=== PATIENT | male | born 1950 | race Caucasian/White ===

== ENCOUNTER 2021-02-27 08:39 | Inpatient (IN) | payer OTHER ==
[~2021-02-27] VITALS: Ht 185.4 cm; Wt 111.6 kg
[2021-02-27 09:02] VITALS: BP 161/98
[2021-02-27 09:22] LABS: HEMOGLOBIN 6.8 gm/dL (14.0-18.0); LYMPHOCYTES 20.3 % (24.0-44.0)
[2021-02-27 09:23] LABS: BASOPHILS 0.6 % (0.0-2.0); EOSINOPHILS 4.2 % (0.0-3.0); MCH 23.6 pg (26.0-34.0); MCHC 30.9 g/dL (28.0-37.0); MCV 76.3 fL (80.0-100.0); MONOCYTES 8.6 % (1.0-8.0); PLATELET COUNT 461 thou/uL (150-400); POLYS 66.3 % (36.0-66.0); RBC 2.88 mil/uL (4.50-6.00); WBC 10.6 thou/uL (4.0-11.0)
[2021-02-27 09:32] LABS: CALCIUM 10.7 mg/dL (8.5-10.1); CREATININE 2.1 mg/dL (0.7-1.3); POTASSIUM 3.2 mmol/L (3.5-5.1)
[2021-02-27 09:42] LABS: ALBUMIN 2.5 g/dL (3.4-5.0); TOTAL BILIRUBIN 0.3 mg/dL (0.2-1.0); TOTAL PROTEIN 7.8 g/dL (6.4-8.2)
--- NOTE | 2021-02-27 12:58 | EKG ---
[place] [address] [facility] [place] [address] ELECTROCARDIOGRAM REPORT Name: BAILEEMELLY OH Rodney [id number] Admission: 02/27/21 Attend Phys: Discharge: Date of : 54 Report #: [id number] [facility] ED Test Date: 2021-02-27 Test Time: 08:49:27 Pat Name: MELLY FARR Department: Room: Gender: Cartoon Artist: ANTONELLA : 1950 Requested By: Kurt Cabrera Order Number: [id number] MD: Blaine Us Measurements Intervals [place] Rate: 95 P: 62 AL: 162 QRS: -52 QRSD: 114 T: 50 QT: 382 QTc: 481 Interpretive Statements Sinus rhythm Atrial premature complex Sinus pause Abnormal R-wave progression, late transition Borderline ST depression, lateral leads No previous ECG available for comparison Electronically Signed On 02-27-2021 12:58:19 CDT by Blaine Us [email or web address] <ELECTRONICALLY SIGNED> By: Blaine Us MD, [facility] 02/27/21 1258 0849 0849 Blaine Us MD, FACC /EPI
[2021-02-27 13:08] LABS: % SATURATION 14 % (20-39); IRON 18 ug/dL (65-175); TIBC 125 ug/dL (250-450)
[2021-02-27 13:25] VITALS: BP 162/126; BP 198/97
[2021-02-27 14:34] VITALS: BP 179/100
[2021-02-27 15:24] VITALS: BP 197/114
--- NOTE | 2021-02-27 16:17 | 2DMMODE ---
[facility] [place] [address] 2 D/M-MODE ECHOCARDIOGRAM Name: MELLY FARR Room #: 215-P ADM IN M.R.#: [id number] Admission: 02/27/21 Attend Phys: Rogelio Puente MD Discharge: Date of : 54 Report #: [id number] THIS REPORT FOR: cc: TAYLOR - No family physician/PCP TAYLOR - No family physician/PCP Blaine Us MD [facility] ~ APPROVED REPORT Study performed: 02/27/2021 15:25:30 EXAM: Comprehensive 2D, Doppler, and color-flow Echocardiogram Patient Location: ER Room #: 9 Status: routine BSA: 2.37 HR: 83 bpm BP: 179/100 mmHg Rhythm: NSR Other Information Study Quality: Good Indications Non STEMI Dyspnea 2D Dimensions RVDd: 37.99 mm IVSd: 10.86 (7-11mm) LVOT Diam: 20.67 (18-24mm) LVDd: 51.88 mm PWd: 11.39 (7-11mm) Ascending Ao: 38.82 (22-36mm) LVDs: 29.44 (25-40mm) Left Atrium: 41.36 (27-40mm) Aortic Root: 35.58 mm IVC: 29.00 mm Volumes Left Atrial Volume (Systole) Single Plane 4CH: 62.42 mL Single Plane 2CH: 44.67 mL LA ESV Index: 24.00 mL/m2 Aortic Valve AoV Peak Shekhar.: 1.63 m/s AO Peak Gr.: 10.60 mmHg LVOT Max P.81 mmHg LVOT Max V: 1.40 m/s [facility] [address] [address] 2 D/M-MODE ECHOCARDIOGRAM Name: MELLY FARR Rodney Room #: 215-P [facility] IN [facility]#: [id number] Admission: 02/27/21 Attend Phys: Rogelio Puente, Discharge: Date of : 54 Report #: [id number] EMILY Vmax: 2.88 cm2 Mitral Valve E/A Ratio: 1.3 MV Decel. Time: 203.94 ms MV E Max Shekhar.: 1.15 m/s MV A Shekhar.: 0.92 m/s MV PHT: 59.14 ms IVRT: 69.20 ms Pulmonary Valve PV Peak Shekhar.: 0.97 m/s PV Peak Gr.: 3.78 mmHg Pulmonary Vein P Vein S: 0.51 m/s P Vein A: 0.32 m/s P Vein D: 0.65 m/s P Vein A Dur.: 110.7 msec P Vein S/D Ratio: 0.78 Tricuspid Valve TR Peak Shekhar.: 2.44 m/s TR Peak Gr.: 23.79 mmHg PA Pressure: 34.00 mmHg Left Ventricle The left ventricle is normal size. There is normal left ventricular wall thickness. The left ventricular systolic function is normal. The left ventricular ejection fraction is within the normal range. LVEF is 60-65%. Grade II - pseudonormal filling dynamics. Right Ventricle The right ventricle is normal size. The right ventricular systolic function is normal. Atria The left atrium size is normal. The right atrium size is normal. Aortic Valve The aortic valve is normal in structure. Trace aortic regurgitation. There is no aortic valvular stenosis. Mitral Valve The mitral valve is normal in structure. Trace mitral regurgitation. No evidence of mitral valve stenosis. Tricuspid Valve [facility] [address] [place] [address] 2 D/M-MODE ECHOCARDIOGRAM Name: MELLY FARR Room #: 215-P [facility] IN .R.#: [id number] Admission: 02/27/21 Attend Phys: Rogelio Puente, Discharge: Date of : 54 Report #: [id number] The tricuspid valve is normal in structure. There is trace tricuspid regurgitation. Estimated PAP 34 mmHg. There is mild pulmonary hypertension. Pulmonic Valve The pulmonary valve is normal in structure. There is no pulmonic valvular regurgitation. Great Vessels The aortic root is normal in size. IVC is dilated and collapses >50% with inspiration. Pericardium There is no pericardial effusion. <Conclusion> Normal left ventricular size/wall thickness Ejection fraction 60-65%, no obvious segmental wall motion abnormality Normal right ventricular size/function Normal atrial size Abnormal aortic/mitral valve structure and function Trace tricuspid valve insufficiency Pulmonary systolic pressure estimated 34 mmHg No pericardial effusion Normal aortic root size. <ELECTRONICALLY SIGNED> By: Blaine Us MD, FACC 02/27/211616 16 16 Blaine Us MD, FACC /INF
[2021-02-27 19:31] LABS: HEMATOCRIT 21.8 % (42.0-52.0)
--- NOTE | 2021-02-27 20:31 | NUR ---
RECEIVED PATIENT FROM ER. PATIENT RESTING IN BED WITH 2 L OXYGEN VIA NASAL CANNULA; PATIENT DENIES SHORTNESS OF AIR AT THIS TIME. PATIENT HAS LARGE LEFT LOWER EXTREMITY WOUND; PICTURES TAKEN AND WOUND CARE CONSULT ADDED. PATIENT'S BLOOD PRESSURE ELEVATED; ADMINISTERED PRN HYDRALAZINE AND CONTACTED DR. MENDOSA. DR. MENDOSA ADDED ORDERS TO MANAGE BLOOD PRESSURE. PATIENT DENIES ANY NEEDS AT THIS TIME. DAUGHTER PRESENT IN ROOM. FALL PRECAUTIONS IN PLACE AND CALL LIGHT WITHIN REACH.
[2021-02-27 21:05] VITALS: BP 152/91
[2021-02-28 04:28] VITALS: BP 162/91
[2021-02-28 05:33] LABS: RBC 2.52 mil/uL (4.50-6.00)
[2021-02-28 05:34] LABS: MCHC 32.6 g/dL (28.0-37.0); MCV 76.7 fL (80.0-100.0); RDW 16.9 % (10.5-14.5); WBC 8.6 thou/uL (4.0-11.0)
[2021-02-28 05:45] LABS: ANION GAP 13 mmol/L (7-16); BUN 22 mg/dL (7-18); CALCIUM 8.8 mg/dL (8.5-10.1); CHLORIDE 106 mmol/L (98-107); CHOLESTEROL 113 mg/dL (<200); CO2 21 mmol/L (21-32); CREATININE 2.1 mg/dL (0.7-1.3); GLUCOSE 95 mg/dL (74-106); HDL CHOLESTEROL 26 mg/dL (>40); LDL CHOLESTEROL 68 mg/dL (<100); POTASSIUM 3.5 mmol/L (3.5-5.1); TC:HDL 4.3 Ratio (Not establshd); TRIGLYCERIDE 99 mg/dL (<150); VLDL 20 mg/dL (<40)
[2021-02-28 05:51] LABS: HEMATOCRIT 19.3 % (42.0-52.0); HEMOGLOBIN 6.3 gm/dL (14.0-18.0)
[2021-02-28 06:03] LABS: SERUM ASSESSMENT Clear; SODIUM 140 mmol/L (136-145)
--- NOTE | 2021-02-28 06:43 | NUR ---
PROGRESS PT A/O X4. DENIES PAIN VSS, TELEMETRY INTACT READING SR WITH RATES IN TO 60'S TO 80'S. PROTOIX DRIP INFUSING AT 25CC/8 MG/HR. IV ANTIBIOTICS ADMINISTERED ORDERED. PT VOIDING QS. TOLERATING WATER. SLEPT MOST OF SHIFT. HGB ON AM LABS 6.3 PROVIDER NOTIFIED AND ORDERED 1 UNIT OF PRBC'S AND RECHECK H&H 1 HOUR AFTER TRANSFUSION COMPLETED. CONSENT SIGNED. BP SLIGHTLY ELEVATED AND PRN HYDRALAZINE ORDERED. ON 2 LITERS O2 PRN SATS IN UPPER 90'S. CONTINUE TO MONITOR.
[2021-02-28 07:37] VITALS: BP 152/93
--- NOTE | 2021-02-28 09:53 | NUR ---
THIS TELEPHONE SALES AGENT COMPLETED ADV. DIR. CONSULT [phone]. PT. WAS OPEN AND HONEST. HE SAID HE SPOKE TO HIS DAUGHTER LAST NIGHT ABOUT COMPLETING AN A.D.. HE WAS NOT INTERESTED IN COMPLETING ONE AT THE TIME. I LEFT HIM A COPY AND EXPLAINED THAT WE ARE MORE THAT GLAD TO NOTARIZE HIS DOCUMENT WHENEVER HE WANTS. I SAID JUST TO HAVE THE HAT FORMER PAGE THE TELEPHONE SALES AGENT.
[2021-02-28 11:17] VITALS: BP 132/66; BP 154/85
--- NOTE | 2021-02-28 12:07 | NUR ---
WOUND CONSULT; THE LEFT LE ANTERIOR CALF HAS A WOUND WHICH IS MALODOUROUS AND PURULENT DRAINAGE. THE WOUND HAD A PSUDO-SCAB, LIKLEY DRIED DRAINAGE OVER A SIGNIFICANT TIME. THE DRIED SCAB-LIKE MATERIAL WAS EASISLLY REMOVED. THE WOUND WAS CLEANSED WITH SALINE AND COVERED WITH A XEROFORM GAUZE/ABD/KERLIX. -RECCOMENDATIONS; CONSULT WOUND CARE PHYSICIAN DISCUSSED WITH
--- NOTE | 2021-02-28 18:16 | NUR ---
OVERALL PT HAD A GOOD SHIFT. PT RECEIVED 1 UNIT OF BLOOD TODAY WITHOUT ISSUE. NO BM TODAY. NO PAIN COMPLAINTS. PT IS CURRENTLY DOING BOWEL PREP FOR AM COLONOSCOPY. NPO AFTER MIDNIGHT.
[2021-02-28 19:02] LABS: HEMATOCRIT 23.1 % (42.0-52.0); HEMOGLOBIN 7.4 gm/dL (14.0-18.0)
[2021-02-28 19:46] VITALS: BP 157/82
--- NOTE | 2021-02-28 23:27 | NUR ---
ASSUMED PT CARE AT AROUND 1915 HRS. PT IS PLEASANT, WORKING ON BOWEL PREP, ALREADY HAD A LARGE BM. DENIES ANY PAIN OR NAUSEA.DENIES DIZZINESS OR SOA. SR ON TELEMETRY. AWARE OF EGD AND COLONOSCPY TOMORROW.NPO AFTER MIDNOC.
[2021-03-01] VITALS (8 sets, daily range): BP systolic 143–171; BP diastolic 78–94
[2021-03-01 03:46] LABS: HEMATOCRIT 22.1 % (42.0-52.0); HEMOGLOBIN 7.1 gm/dL (14.0-18.0); MCH 25.3 pg (26.0-34.0); MCHC 32.3 g/dL (28.0-37.0); MCV 78.3 fL (80.0-100.0); RBC 2.82 mil/uL (4.50-6.00); RDW 18.2 % (10.5-14.5); WBC 7.6 thou/uL (4.0-11.0)
[2021-03-01 05:44] LABS: CALCIUM 8.3 mg/dL (8.5-10.1); MAGNESIUM 1.5 mg/dL (1.8-2.4)
[2021-03-01 05:59] LABS: POTASSIUM 2.9 mmol/L (3.5-5.1)
--- NOTE | 2021-03-01 11:55 | NUR ---
WOUND CARE F/U; THE WOUND IS DRAMATICALLY IMPROVED SINCE ADMIT. NO S/S OF INFECTION. CURRENTLY USING GENTAMYCIN OINTMENT TO THE WOUND BED, COVER WITH XEROFORM GAUZE, KERLIX,MELY. EDEMA HAS IMPROVED WELL. NO CHANGES TO POC.
--- NOTE | 2021-03-01 15:08 | NUR ---
PT OFF THE FLOOR BETWEEN 10:30 AND 14:20. FOR COLONOSCOPY AND EGD.
[2021-03-01 20:53] LABS: HEMATOCRIT 24.5 % (42.0-52.0); HEMOGLOBIN 7.8 gm/dL (14.0-18.0)
[2021-03-02 05:33] LABS: HEMATOCRIT 23.7 % (42.0-52.0); HEMOGLOBIN 7.6 gm/dL (14.0-18.0); MCH 25.2 pg (26.0-34.0); MCHC 32.1 g/dL (28.0-37.0); MCV 78.6 fL (80.0-100.0); RBC 3.01 mil/uL (4.50-6.00)
[2021-03-02 05:43] VITALS: BP 137/72
[2021-03-02 06:06] LABS: CREATININE 1.8 mg/dL (0.7-1.3); MAGNESIUM 1.8 mg/dL (1.8-2.4); POTASSIUM 3.1 mmol/L (3.5-5.1)
[2021-03-02 08:28] VITALS: BP 154/91
[2021-03-02 11:03] VITALS: BP 140/100; BP 150/99
[2021-03-02 12:07] VITALS: BP 146/82
[2021-03-02 16:28] VITALS: BP 147/85
[2021-03-02 18:51] LABS: HEMATOCRIT 26.5 % (42.0-52.0); HEMOGLOBIN 8.6 gm/dL (14.0-18.0)
[2021-03-02 19:53] VITALS: BP 147/84
--- NOTE | 2021-03-02 20:17 | NUR ---
PT IS AXOX4, PLEASANT; VS BP ELEVATED, AFEBRILE, SR ON THE MONITOR. PT HGB 7.6 THIS AM. IV TEAM CONSULTED FOR ADDITIONAL PIV. ONE UNIT PRBC GIVEN. DR TOLENTINO, DR ALANIS, DR MENDOSA CONSULTED. POC IS TO CONTINUE TO MONITOR HGB; PT TOLERATING ADVANCED DIET OF FULL LIQUIDS. POSS D/C FRIDAY PER . FALL PRECAUTIONS IN PLACE. NO CONCERNS AT THIS TIME.
[2021-03-03 02:37] LABS: HEMATOCRIT 25.5 % (42.0-52.0); HEMOGLOBIN 8.3 gm/dL (14.0-18.0); MCH 25.8 pg (26.0-34.0); MCHC 32.4 g/dL (28.0-37.0); MCV 79.6 fL (80.0-100.0); RBC 3.21 mil/uL (4.50-6.00); RDW 18.2 % (10.5-14.5); WBC 8.5 thou/uL (4.0-11.0)
[2021-03-03 02:54] LABS: CALCIUM 7.8 mg/dL (8.5-10.1); CREATININE 1.6 mg/dL (0.7-1.3); MAGNESIUM 1.8 mg/dL (1.8-2.4); POTASSIUM 3.1 mmol/L (3.5-5.1)
[2021-03-03 05:28] VITALS: BP 145/78
--- NOTE | 2021-03-03 07:33 | NUR ---
SLEPT PART OF SHIFT. DENIES COMPLAINTS THIS SHIFT. WAS GOING TO CHANGE LLE DRESSING LAST PM AT 2130 BUT PATIENT REFUSED SAYING IT ONLY GETS DONE ONCE A DAY. ASKED AM RN TO CLARIFY FOR PATIENT. WORKING ON GOALS AND PLAN OF CARE FOR NOC. CONTINUE TO ASSES.
[2021-03-03 08:00] VITALS: BP 153/91
[2021-03-03 11:30] VITALS: BP 141/75
[2021-03-03 16:30] VITALS: BP 146/86
[2021-03-03 19:27] VITALS: BP 149/105
--- NOTE | 2021-03-03 19:34 | NUR ---
PT IS AXOX4, PLEASANT. VSS, AFEBRILE, SR THIS AM ON MONITOR. DENIES PAIN. DR BARRY CONSULTED. PT MADE MED SURG. PT PROGRESSED TO SOFT DIET, TOLERATING WELL. GI/SURGERY CONSULTED; PT TOLD TO PROGRESS ON DIET SLOWLY AND TO CONTINUE ON SOFT DIET UNTIL ULCER CAN HEAL. PT COMMUNICATED UNDERSTANDING. PT HAS BEEN UP AD GREGORIO MOVING IN ROOM. POC IS TO CONTINUE TO MONITOR VITALS, ASSESS TOLERANCE ADVANCING DIET, HGB STABLE. POSS D/C IN AM. FALL PRECAUTIONS IN PLACE. NO CONCERNS AT THIS TIME.
[2021-03-04 01:35] LABS: URINE CREATININE-RANDOM* 44.1 mg/dL
[2021-03-04 01:36] LABS: PROT/CREAT RATIO 1.2; URINE PROTEIN-RANDOM* 53.8 mg/dL (<11.9)
[2021-03-04 05:10] VITALS: BP 145/85
[2021-03-04 05:32] LABS: CALCIUM 7.6 mg/dL (8.5-10.1); CREATININE 1.6 mg/dL (0.7-1.3); MAGNESIUM 1.9 mg/dL (1.8-2.4); POTASSIUM 3.2 mmol/L (3.5-5.1)
[2021-03-04 05:33] LABS: HEMATOCRIT 25.8 % (42.0-52.0); HEMOGLOBIN 8.4 gm/dL (14.0-18.0); MCH 25.5 pg (26.0-34.0); MCHC 32.6 g/dL (28.0-37.0); MCV 78.4 fL (80.0-100.0); RBC 3.29 mil/uL (4.50-6.00); RDW 18.6 % (10.5-14.5); WBC 6.3 thou/uL (4.0-11.0)
[2021-03-04 07:25] VITALS: BP 149/87
--- NOTE | 2021-03-04 07:38 | NUR ---
SLEPT MOST OF SHIFT. DENIES COMPLAINTS OF PAIN. DRESSING TO LEFT LEG INTACT AND DRY. WORKING ON GOALS AND PLAN OF CARE FOR NOC. CONTINUE TO ASSES. NOTED REDNESS TO LEFT INNER ARM FROM BRUISE ON LEFT FA.
[2021-03-04] MEDS ORDERED: CEFUROXIME500 MG PO (09:07)
[2021-03-04] MEDS ORDERED: COREG6.25 MG PO (09:08)
[2021-03-04] MEDS ORDERED: PROTONIX 20 MG20 M1 PO (09:09)
[2021-03-04 10:01] VITALS: BP 149/87
[2021-03-04 11:25] VITALS: BP 142/83
--- NOTE | 2021-03-04 11:50 | NUR ---
PT IS AXOX4, PLEASANT; DENIES PAIN; VSS, AFEBRILE, MEDSURG SO NOT MONITORED. PT HAS BEEN UP AD GREGORIO IN THE ROOM. DR BARRY CONSULTED, DR ALANIS CONSULTED, DR VELARDE CONSULTED. PT TO D/C THIS AFTERNOON TO HOME. DISCHARGE EDUCATION COMPLETED. PT COMMUNICATED UNDERSTANDING OF FOLLOW UP APPTS AND MEDICATIONS. PT D/C WITH DTR VIA PERSONAL VEHICLE TO HOME. NO CONCERNS AT THIS TIME.
--- NOTE | 2021-03-05 11:03 | HC ---
[facility] [place] [address] CONSULTATION Name: MELLY FARR Room #: 215-P [facility] IN M.R.#: [id number] Admission: 02/27/21 Attend Phys: Rogelio Puente MD Discharge: 03/04/21 Date of : 54 Report #: [id number] THIS REPORT FOR: cc: FAM - No family physician/PCP FAM - No family physician/PCP Slade Mendiola MD ~ DATE OF SERVICE: 02/28/2021 CHIEF COMPLAINT: Ulceration, left lower extremity. HISTORY OF PRESENT ILLNESS: This is a 70-year-old male patient who was admitted to the hospital with worsening shortness of breath over the last several days, especially with exertion. He also has had some coffee-ground emesis, but was noted to have a venous type ulcer on his left leg and I have been asked to see him with regard to wound care. He denies significant pain, but states that it has been getting progressively worse. PAST MEDICAL HISTORY: Positive for history of hypertension, chronic ulceration of left lower extremity, chronic kidney disease, history of atrial fibrillation status post ablation 20 years ago. FAMILY HISTORY: Positive for coronary artery disease in his father. SOCIAL HISTORY: Negative for alcohol or tobacco use. He is a partly retired senior accountant analyst. ALLERGIES: No known drug allergies. MEDICATIONS: Include carvedilol, cefepime, gentamicin, hydralazine, pantoprazole, vancomycin. REVIEW OF SYSTEMS: CONSTITUTIONAL: The patient denies fever, chills or weight loss. NEUROLOGICAL: The patient denies focal weakness, or tingling. EYES: The patient denies visual changes, redness, drainage. ENT: The patient denies earache, nasal drainage or sore throat CARDIOVASCULAR: The patient denies chest pain, palpitations or diaphoresis. PULMONARY: Does complain of shortness of breath, especially with exertion. GASTROINTESTINAL: The patient does complain of coffee-ground emesis. GENITOURINARY: The patient denies frequency, urgency or dysuria. ORTHOPEDIC: The patient notes swelling and ulceration of the left lower extremity. Other systems in a 14-point review of systems are negative. PHYSICAL EXAMINATION: [facility] [address] [place] [address] CONSULTATION Name: MELLY FARR Room #: 215-P [facility] IN [facility]#: [id number] Admission: 02/27/21 Attend Phys: Rogelio Puente MD Discharge: 03/04/21 Date of : 54 Report #: [id number] VITAL SIGNS: At this time include temperature 36.7, pulse 80, respiratory rate of 20, blood pressure 152/93. GENERAL: This is a well-developed male patient, who appears to be in minimal distress. HEENT: Head normocephalic. Nose and throat are clear. NECK: Supple. LUNGS: Diminished. HEART: Regular rhythm. ABDOMEN: Soft and bowel sounds are present. EXTREMITIES: Examination of the lower extremities demonstrate easily palpable distal pulses. He has 2 to 3+ edema bilaterally. He has a very large oval shaped pretibial ulceration on the left leg. There is some crusting and a little bit of drainage present, but there is evidence of granulation tissue. There is hyperpigmentation and some hemosiderin staining to his left leg suggestive of venous stasis dermatitis. NEUROLOGIC: The patient is alert, oriented and appropriate. LABORATORY DATA: Include sodium 140, potassium 3.5, chloride 106, CO2 of 21, BUN 22, glucose 95. White blood cell count is 8.6 with a hemoglobin of 6.3. CLINICAL IMPRESSION: 1. A venous type ulceration to the left lower leg. 2. Iron deficiency anemia and possible acute blood loss anemia. 3. Possible gastrointestinal bleeding. 4. Hypertension. 5. Chronic kidney disease. RECOMMENDATIONS: At this point in time, recommend topical gentamicin ointment, Xeroform, ABD, Kerlix, Lalo from toes to knees. Elevation of the lower extremities. Continue with medical management, nutritional support. I appreciate being asked to see him in consultation. <ELECTRONICALLY SIGNED> By: Slade Mendiola MD 03/05/21 1103 0906 1056 Slade Mendiola MD /nt
--- NOTE | 2021-03-08 10:08 | PATH ---
[facility] [place] [address] PATHOLOGY RPT PROCEDURE Name: LOPEZ FARR Room #: 215-P DIS IN M.R.#: [id number] Admission: 02/27/21 Date of : 54 Discharge: 03/04/21 Report #: [id number] Path Case #: [id number] [facility] Accession Number: [id number] . 01 Material submitted: . PART A: gastrointestinal site - GASTRIC ULCERATION/MASS BIOPSY PART B: gastrointestinal site - GASTRIC BIOPSY- R/O H. PYLORI . 01 Clinical history: . ESOPHAGOGASTRODUODENOSCOPY ANEMIA, POSITIVE HEMOCCULT GASTRIC OUTLET OBSTRUCTION, GASTRIC ULCER . 02 Diagnosis: A. Gastric mucosa, gastric ulceration/mass, endoscopic biopsy: - Fragments of an ulcer associated with granulation tissue and necroinflammatory debris (please see comment). - Focal surface epithelium present showing reactive changes without intestinal metaplasia or dysplasia. - Negative for Helicobacter pylori (properly controlled immunohistochemical stain performed). . B. Gastric mucosa, gastric to rule out H. pylori, endoscopic biopsy: - Moderate chronic active gastritis with features of reactive gastropathy. - Negative for intestinal metaplasia or atrophy. - Negative for Helicobacter pylori (properly controlled immunohistochemical stain performed). . (IUV:sail repair person; 03/05/2021) MBR 03/05/2021 1441 Local . 02 Comment: In addition to a properly controlled Helicobacter pylori immunohistochemical (IHC) stain, additional properly controlled IHC stains were performed on block A1 due to the provided history of ulceration/mass. The spindle cells show reactivity with SMA, the cells are nonreactive to CD117 and AE1/AE3. These findings are suggestive of myofibroblastic proliferation of an ulcer along with the granulation tissue. The nonreactive immunohistochemical stains argue against a partially sampled poorly differentiated carcinoma or a gastrointestinal stromal tumor. Clinical correlation and re-biopsy if indicated is suggested. (IUV:sail repair person; 03/05/2021) . 02 Electronically signed: . Tabitha Rhodes MD, Pathologist NPI- [id number] . [address] [place] [address] PATHOLOGY RPT PROCEDURE Name: LOPEZ FARR Room #: 215-P DIS IN M.R.#: [id number] Admission: 02/27/21 Date of : 54 Discharge: 03/04/21 Report #: [id number] Path Case #: [id number] Gross description: . A. The specimen is received in formalin, labeled "Doppelt, Lopez, gastric ulceration mass BX". Received are multiple segments of pale grayson tissue ranging in size from 0.2 cm to 0.5 cm in maximum dimensions. The specimen is submitted entirely in cassette A1. . B. The specimen is received in formalin, labeled "Doppelt, Lopez, gastric BX". Received are 3 segments of pale grayson tissue ranging in size from 0.3 to 0.4 cm in maximum dimensions. The specimen is submitted entirely in cassette B1.([facility]; 03/02/2021) [facility] 03/02/2021 1111 Local . 02 Pathologist provided ICD-10: K29.50, K31.9 . 02 CPT . 322727, 904363, H45283, M07417 Specimen Comment: A courtesy copy of this report has been sent to [phone], [phone] Specimen Comment: [id number], Specimen Comment: Report sent to ,DR MENDOSA / DR MOHAMUD Specimen Comment: A duplicate report has been generated due to demographic updates. Performed at: [address] [facility], [place], [place] [id number] MD Kleber Mehta MD Phone: [phone] Performed at: [address] [facility] [id number] MD Tabitha Rohdes MD Phone: [phone]
== END 2021-03-04 12:21 | disposition home or self-care (01) | DRG 377 ==
LOC: ER 08:39 → EROBS 11:31 → 2N 11:31
PROVIDERS: Emergency Medicine; Hospitalist; Internal Medicine Nephrology; Nurse Practitioner; ADMIT Internal Medicine; ATTEND Internal Medicine
DX: K25.4 Chronic or unspecified gastric ulcer with hemorrhage (principal); N17.0 Acute kidney failure with tubular necrosis; I21.A1 Myocardial infarction type 2; E43 Unspecified severe protein-calorie malnutrition; R65.11 Systemic inflammatory response syndrome (SIRS) of non-infectious origin with acute organ dysfunction; L03.116 Cellulitis of left lower limb; D62 Acute posthemorrhagic anemia; L97.821 Non-pressure chronic ulcer of other part of left lower leg limited to breakdown of skin; K31.1 Adult hypertrophic pyloric stenosis; E44.0 Moderate protein-calorie malnutrition; E83.52 Hypercalcemia; T47.1X5A Adverse effect of other antacids and anti-gastric-secretion drugs, initial encounter; Y92.89 Other specified places as the place of occurrence of the external cause; I12.9 Hypertensive chronic kidney disease with stage 1 through stage 4 chronic kidney disease, or unspecified chronic kidney disease; I83.028 Varicose veins of left lower extremity with ulcer other part of lower leg; K21.9 Gastro-esophageal reflux disease without esophagitis; N18.30 Chronic kidney disease, stage 3 unspecified; Z68.32 Body mass index [BMI] 32.0-32.9, adult; Z82.49 Family history of ischemic heart disease and other diseases of the circulatory system; E87.6 Hypokalemia; Z23 Encounter for immunization; Z20.822 Contact with and (suspected) exposure to COVID-19
CPT/HCPCS: 10081; 62110; 62900; 70005

== ENCOUNTER → 2021-03-12 | Outpatient (CLI) | payer OTHER ==
[~2021-03-12] MED LIST: CEFUROXIME500 MG PO; COREG6.25 MG PO; PROTONIX 20 MG20 M1 PO
== END ==
LOC: HYPER 09:35
PROVIDERS: ATTEND Emergency Medicine Emergency Medical Services
DX: L97.822 Non-pressure chronic ulcer of other part of left lower leg with fat layer exposed (principal); I87.2 Venous insufficiency (chronic) (peripheral); I10 Essential (primary) hypertension; K21.9 Gastro-esophageal reflux disease without esophagitis

== ENCOUNTER → 2021-03-22 | Outpatient (CLI) | payer OTHER | LOC: SJCVC 13:11 | PROVIDERS: ATTEND Internal Medicine | DX: I10 Essential (primary) hypertension (principal); K21.9 Gastro-esophageal reflux disease without esophagitis; Z79.899 Other long term (current) drug therapy; Z82.49 Family history of ischemic heart disease and other diseases of the circulatory system ==

== ENCOUNTER → 2021-04-09 | Outpatient (CLI) | payer OTHER | LOC: HYPER 09:12 | PROVIDERS: ATTEND Emergency Medicine Emergency Medical Services | DX: L97.822 Non-pressure chronic ulcer of other part of left lower leg with fat layer exposed (principal); I87.2 Venous insufficiency (chronic) (peripheral); I10 Essential (primary) hypertension; R60.1 Generalized edema; Z79.899 Other long term (current) drug therapy ==

== ENCOUNTER → 2021-04-23 | Outpatient (CLI) | payer OTHER | LOC: HYPER 09:02 | PROVIDERS: ATTEND Emergency Medicine Emergency Medical Services | DX: L97.822 Non-pressure chronic ulcer of other part of left lower leg with fat layer exposed (principal); I87.2 Venous insufficiency (chronic) (peripheral); I10 Essential (primary) hypertension; R60.1 Generalized edema; Z79.899 Other long term (current) drug therapy ==

== ENCOUNTER → 2021-05-07 | Outpatient (CLI) | payer OTHER | LOC: HYPER 08:57 | PROVIDERS: ATTEND Emergency Medicine Emergency Medical Services | DX: L97.822 Non-pressure chronic ulcer of other part of left lower leg with fat layer exposed (principal); I87.2 Venous insufficiency (chronic) (peripheral); I10 Essential (primary) hypertension; K21.9 Gastro-esophageal reflux disease without esophagitis; R60.1 Generalized edema; Z79.899 Other long term (current) drug therapy ==

== ENCOUNTER → 2021-05-21 | Outpatient (CLI) | payer OTHER | LOC: SJCVC 11:21 | PROVIDERS: ATTEND Internal Medicine | DX: I10 Essential (primary) hypertension (principal); K21.9 Gastro-esophageal reflux disease without esophagitis; I48.91 Unspecified atrial fibrillation; Z79.899 Other long term (current) drug therapy ==

== ENCOUNTER → 2021-05-25 | Outpatient (CLI) | payer OTHER | LOC: HYPER 09:26 | PROVIDERS: ATTEND Emergency Medicine Emergency Medical Services | DX: L97.822 Non-pressure chronic ulcer of other part of left lower leg with fat layer exposed (principal); L84 Corns and callosities; R60.1 Generalized edema; I87.2 Venous insufficiency (chronic) (peripheral); I10 Essential (primary) hypertension; K21.9 Gastro-esophageal reflux disease without esophagitis; Z79.899 Other long term (current) drug therapy ==

== ENCOUNTER → 2021-06-07 | Outpatient (CLI) | payer OTHER | LOC: SJCVC 10:32 | PROVIDERS: ATTEND Internal Medicine | DX: I10 Essential (primary) hypertension (principal); I48.91 Unspecified atrial fibrillation; K21.9 Gastro-esophageal reflux disease without esophagitis; Z82.49 Family history of ischemic heart disease and other diseases of the circulatory system; Z79.899 Other long term (current) drug therapy ==

== ENCOUNTER → 2021-06-11 | Outpatient (CLI) | payer OTHER | LOC: HYPER 10:06 | PROVIDERS: ATTEND Emergency Medicine Emergency Medical Services | DX: L97.822 Non-pressure chronic ulcer of other part of left lower leg with fat layer exposed (principal); L84 Corns and callosities; R60.1 Generalized edema; I87.2 Venous insufficiency (chronic) (peripheral); I10 Essential (primary) hypertension; K21.9 Gastro-esophageal reflux disease without esophagitis; Z79.899 Other long term (current) drug therapy ==

== ENCOUNTER → 2021-06-26 | Outpatient (CLI) | payer OTHER ==
[~2021-06-26] VITALS: Ht 185.4 cm; Wt 124.7 kg
[~2021-06-26] MED LIST changes: +DILTIAZEM ER360 M1 PO; +IRON325 M1 PO; +METOPROLOL SUCC50 MG PO; +PROTONIX 20 MG20 MG PO
== END | disposition home or self-care (01) ==
LOC: GI 06-19 15:13
PROVIDERS: ATTEND Internal Medicine
DX: T18.2XXA Foreign body in stomach, initial encounter (principal); K21.9 Gastro-esophageal reflux disease without esophagitis; K25.7 Chronic gastric ulcer without hemorrhage or perforation; K31.89 Other diseases of stomach and duodenum; I10 Essential (primary) hypertension; D64.9 Anemia, unspecified; Z79.899 Other long term (current) drug therapy; Z98.890 Other specified postprocedural states; Z20.822 Contact with and (suspected) exposure to COVID-19; X58.XXXA Exposure to other specified factors, initial encounter; Y93.89 Activity, other specified; Y92.89 Other specified places as the place of occurrence of the external cause; Y99.8 Other external cause status
CPT/HCPCS: 62110; 62900

== ENCOUNTER → 2021-07-02 | Outpatient (CLI) | payer OTHER | LOC: HYPER 09:12 | PROVIDERS: ATTEND Emergency Medicine Emergency Medical Services | DX: L97.822 Non-pressure chronic ulcer of other part of left lower leg with fat layer exposed (principal); I87.2 Venous insufficiency (chronic) (peripheral); I10 Essential (primary) hypertension; R60.1 Generalized edema; Z79.899 Other long term (current) drug therapy ==